=== PATIENT | male | born 1980 | race African-American/Black ===

== ENCOUNTER 2020-03-09 14:50 | Emergency (ER) | payer SELFPAY ==
[~2020-03-09] VITALS: Ht 167.6 cm; Wt 121.0 kg
[2020-03-09 15:56] VITALS: BP 140/90
== END 2020-03-09 15:59 | disposition home or self-care (01) ==
LOC: ER 14:50
DX: H65.93 Unspecified nonsuppurative otitis media, bilateral (principal)
CPT/HCPCS: 99283